=== PATIENT | male | born 1960 | race African-American/Black ===

== ENCOUNTER 2018-09-10 09:01 | Emergency (ER) | payer MEDICAID ==
[~2018-09-10] VITALS: Ht 180.3 cm; Wt 100.0 kg
[~2018-09-10 09:01] MED LIST: DEPAKOTE PO; ZYPREXA PO
[2018-09-10] MEDS ORDERED: BENZOCAINE/MENTHOL LOZENGE PO ONE (09:30)
[2018-09-10 11:38] VITALS: BP 136/82
== END 2018-09-10 11:43 | disposition home or self-care (01) ==
LOC: EMS 09:02
DX: J02.9 Acute pharyngitis, unspecified (principal); H61.21 Impacted cerumen, right ear; F32.9 Major depressive disorder, single episode, unspecified; F17.210 Nicotine dependence, cigarettes, uncomplicated
CPT/HCPCS: 87430; 99406

== ENCOUNTER 2018-10-05 12:55 | Emergency (ER) | payer MEDICAID ==
[~2018-10-05] VITALS: Ht 180.3 cm; Wt 107.3 kg
[2018-10-05] MEDS ORDERED: LIDOCAINE 5% TRANSDERMAL PATCH TD ONE (14:45)
[2018-10-05] MEDS ORDERED: KETOROLAC TROMETHAMINE 30 MG/ML VIAL IM ONE (14:45)
[2018-10-05] MEDS ORDERED: CYCLOBENZAPRINE HCL 10 MG TABLET PO ONE (14:45)
[2018-10-05 16:01] VITALS: BP 164/100
== END 2018-10-05 16:11 | disposition home or self-care (01) ==
LOC: EMS 12:55
DX: S39.012A Strain of muscle, fascia and tendon of lower back, initial encounter (principal); F32.9 Major depressive disorder, single episode, unspecified; F17.210 Nicotine dependence, cigarettes, uncomplicated; Z85.46 Personal history of malignant neoplasm of prostate; X50.0XXA Overexertion from strenuous movement or load, initial encounter; Y93.89 Activity, other specified; Y92.89 Other specified places as the place of occurrence of the external cause; Y99.1 Military activity
CPT/HCPCS: 72100; 96372; 99283; 99406; J1885

== ENCOUNTER 2020-12-20 12:18 | Emergency (ER) | payer MEDICAID ==
[~2020-12-20] VITALS: Ht 180.3 cm; Wt 102.7 kg
[2020-12-20 12:30] VITALS: BP 131/63
== END 2020-12-20 14:15 | disposition home or self-care (01) ==
LOC: EMS 12:44
DX: S46.002A Unspecified injury of muscle(s) and tendon(s) of the rotator cuff of left shoulder, initial encounter (principal); F32.9 Major depressive disorder, single episode, unspecified; F17.210 Nicotine dependence, cigarettes, uncomplicated; X58.XXXA Exposure to other specified factors, initial encounter; Y93.89 Activity, other specified; Y92.89 Other specified places as the place of occurrence of the external cause; Y99.8 Other external cause status
CPT/HCPCS: 99283